=== PATIENT | male | born 1945 | race Caucasian/White ===

== ENCOUNTER 2019-02-15 15:04 | Emergency (ER) | payer MEDICARE, BC ==
[~2019-02-15] VITALS: Ht 177.8 cm; Wt 61.2 kg
[2019-02-15] MEDS: IV NORMAL SALINE 1,000ML 1,000 ML IV SCH ×2 (15:15→15:47)
--- NOTE | 2019-02-15 15:18 | EKG ---
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
[2019-02-15 15:28] LABS: BASO % 0 % (0-3); EOS # 0.1 x10^3/uL (0.0-0.7); EOS % 0 % (0-3); HEMATOCRIT 33.3 % (39.0-53.0); HEMOGLOBIN 10.2 g/dL (13.0-17.5); LYMPH # 1.2 x10^3/uL (1.0-4.8); LYMPH % 4 % (24-48); MEAN CORPUSCULAR HEMOGLOBIN 25 pg (25-35); MEAN CORPUSCULAR HGB CONC 31 g/dL (31-37); MEAN CORPUSCULAR VOLUME 81 fL (79-100); MONO # 1.7 x10^3/uL (0.0-1.1); MONO % 6 % (0-9); NEUT # 26.5 x10^3uL (1.8-7.7); NEUT % 90 % (31-73); PLATELET COUNT 417 x10^3/uL (140-400); RED BLOOD COUNT 4.09 x10^6/uL (4.30-5.70); RED CELL DISTRIBUTION WIDTH 16.1 % (11.5-14.5); WHITE BLOOD COUNT 29.6 x10^3/uL (4.0-11.0)
[2019-02-15 15:43] LABS: ALBUMIN 2.6 g/dL (3.4-5.0); ALBUMIN/GLOBULIN RATIO 0.5 (1.0-1.7); CALCIUM 9.3 mg/dL (8.5-10.1); CREATININE 0.8 mg/dL (0.7-1.3); POTASSIUM 3.9 mmol/L (3.5-5.1); TOTAL BILIRUBIN 0.6 mg/dL (0.2-1.0); TOTAL PROTEIN 8.1 g/dL (6.4-8.2)
--- NOTE | 2019-02-15 16:03 | RAD ---
CT HEAD WO CONTRAST History: Left-sided weakness Comparison: None. Technique: Noncontrast CT imaging was performed of the head. Exposure: One or more of the following individualized dose reduction techniques were utilized for this examination: 1. Automated exposure control 2. Adjustment of the mA and/or kV according to patient size 3. Use of iterative reconstruction technique. Findings: There is a 2.4 cm AP by 2.2 cm transverse fairly round focus of hyperdensity in the right frontal region with adjacent fairly severe vasogenic edema signified by low density. There is mild right to left midline shift of about 0.4 cm. There is mild lateral ventriculomegaly although probably component of mild supratentorial involutional change. There is patchy minimal density in the left mastoid air cells. Paranasal sinuses are aerated. There is atherosclerotic calcification of the carotid siphons bilaterally. Impression: 1. There is hyperdense mass or parenchymal hematoma of the right frontal lobe with adjacent prominent vasogenic edema. There is mild [id number] midline shift. Critical results were discussed by telephone with CAMILLA SAHA at 02/15/2019 4:00 PM. Electronically signed by: Lukas Chaudhari MD (02/15/2019 4:00 PM) [id number]
[2019-02-15 16:17] LABS: % BANDS 5 % (0-9); % BASOS 0 % (0-3); % EOS 2 % (0-5); % LYMPHS 7 % (24-48); % MONOS 3 % (0-10); % SEGS 83 % (35-66); HYPOCHROMIA SLIGHT; PLT ESTIMATE INCREASED (ADEQUATE); TARGET CELLS PRESENT; TOXIC GRANULATION MARKED; TOXIC VACUOLATION SLIGHT
--- NOTE | 2019-02-15 16:52 | PHYS DOC ---
Adult General Chief Complaint Chief Complaint: NEURO SYMPTOMS/DEFICITS [facility] HPI Patient is a 73-year-old male who presents with complaint of some left-sided weakness and numbness that started 2 days ago. Patient presenting with concerns that he has had a heart attack. He denies any chest pain or shortness of breath. He denies any dizziness.[] Review of Systems Review of Systems Constitutional: Denies fever or chills [] Eyes: Denies change in visual acuity, redness, or eye pain [] Respiratory: Denies cough or shortness of breath [] Cardiovascular: No additional information not addressed in HPI [] GI: Denies abdominal pain, nausea, vomiting or diarrhea [] Integument: Denies rash or skin lesions [] Neurologic: Denies headache, complains of left-sided weakness and numbness[] All other systems were reviewed and found to be within normal limits, except as documented in this note. Current Medications Current Medications Current Medications Medications (Trade) Dose Ordered Sig/Fabiano Start Time Stop Time Status Last Admin Dose Admin Sodium Chloride 1,000 ml @ 1,000 mls/hr Q1H 02/15/19 15:15 02/15/19 16:14 Allergies Allergies Allergies Coded Allergies Type Severity Reaction Last Updated Verified No Known Drug Allergies 02/15/19 No Physical Exam Physical Exam Constitutional: Well developed, well nourished, no acute distress, non-toxic appearance. [] HENT: Normocephalic, atraumatic, bilateral external ears normal, oropharynx moist, no oral exudates, nose normal. [] Eyes: PERRLA, EOMI, conjunctiva normal, no discharge. [] Neck: Normal range of motion, no tenderness, supple. [] Cardiovascular: Regular rate and rhythm[] Lungs & Thorax: Bilateral breath sounds clear to auscultation [] Abdomen: Bowel sounds normal, soft, no tenderness. [] Skin: Warm, dry, no erythema, no rash. [] Extremities: No tenderness, no cyanosis, no clubbing, ROM intact, with bilateral lower extremity 2+ edema. 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 [] Current Patient Data Vital Signs Vital Signs Date Time Temp Pulse Resp B/P (MAP) Pulse Ox O2 Delivery O2 Flow Rate FiO2 02/15/19 15:56 77 21 150/85 (106) 98 Room Air Lab Results Laboratory Tests Test 02/15/19 15:11 White Blood Count 29.6 x10^3/uL (4.0-11.0) H Red Blood Count 4.09 x10^6/uL (4.30-5.70) L Hemoglobin 10.2 g/dL (13.0-17.5) L Hematocrit 33.3 % (39.0-53.0) L Mean Corpuscular Volume 81 fL (79-100) Mean Corpuscular Hemoglobin 25 pg (25-35) Mean Corpuscular Hemoglobin Concent 31 g/dL (31-37) Red Cell Distribution Width 16.1 % (11.5-14.5) H Platelet Count 417 x10^3/uL (140-400) H Neutrophils (%) (Auto) 90 % (31-73) H Lymphocytes (%) (Auto) 4 % (24-48) L Monocytes (%) (Auto) 6 % (0-9) Eosinophils (%) (Auto) 0 % (0-3) Basophils (%) (Auto) 0 % (0-3) Neutrophils # (Auto) 26.5 x10^3uL (1.8-7.7) H Lymphocytes # (Auto) 1.2 x10^3/uL (1.0-4.8) Monocytes # (Auto) 1.7 x10^3/uL (0.0-1.1) H Eosinophils # (Auto) 0.1 x10^3/uL (0.0-0.7) Basophils # (Auto) 0.0 x10^3/uL (0.0-0.2) Platelet Estimate Pending Prothrombin Time 12.3 SEC (9.4-11.4) H Prothrombin Time INR 1.2 (0.9-1.1) H Sodium Level 136 mmol/L (136-145) Potassium Level 3.9 mmol/L (3.5-5.1) Chloride Level 97 mmol/L (98-107) L Carbon Dioxide Level 28 mmol/L (21-32) Anion Gap 11 (6-14) Blood Urea Nitrogen 15 mg/dL (8-26) Creatinine 0.8 mg/dL (0.7-1.3) Estimated GFR (Cockcroft-Gault) 95.0 BUN/Creatinine Ratio 19 (6-20) Glucose Level 99 mg/dL (70-99) Calcium Level 9.3 mg/dL (8.5-10.1) Total Bilirubin 0.6 mg/dL (0.2-1.0) Aspartate Amino Transferase (AST) 22 U/L (15-37) Alanine Aminotransferase (ALT) 24 U/L (16-63) Alkaline Phosphatase 141 U/L (46-116) H Troponin I Quantitative < 0.017 ng/mL (0-0.055) Total Protein 8.1 g/dL (6.4-8.2) Albumin 2.6 g/dL (3.4-5.0) L Albumin/Globulin Ratio 0.5 (1.0-1.7) L EKG EKG [] Radiology/Procedures Radiology/Procedures [] Impressions: PROCEDURE: CT HEAD WO CONTRAST CT HEAD WO CONTRAST History: Left-sided weakness Comparison: None. Technique: Noncontrast CT imaging was performed of the head. Exposure: One or more of the following individualized dose reduction techniques were utilized for this examination: 1. Automated exposure control 2. Adjustment of the mA and/or kV according to patient size 3. Use of iterative reconstruction technique. Findings: There is a 2.4 cm AP by 2.2 cm transverse fairly round focus of hyperdensity in the right frontal region with adjacent fairly severe vasogenic edema signified by low density. There is mild right to left midline shift of about 0.4 cm. There is mild lateral ventriculomegaly although probably component of mild supratentorial involutional change. There is patchy minimal density in the left mastoid air cells. Paranasal sinuses are aerated. There is atherosclerotic calcification of the carotid siphons bilaterally. Impression: 1. There is hyperdense mass or parenchymal hematoma of the right frontal lobe with adjacent prominent vasogenic edema. There is mild [id number] midline shift. Critical results were discussed by telephone with CAMILLA SAHA at 02/15/2019 4:00 PM. Course & Med Decision Making Course & Med Decision Making Pertinent Labs and Imaging studies reviewed. (See chart for details) Dr. Hall accepting patient in transfer to [facility].[] Dragon Disclaimer Dragon Disclaimer This electronic medical record was generated, in whole or in part, using a voice recognition dictation system. Departure Departure: Impression: Primary Impression: Intracranial mass Disposition: XFER SHT-TRM HOSP Condition: GOOD Referrals: PCP,NO (PCP) CAMILLA SAHA Jr. DO Feb 15, 2019 16:52
[2019-02-15] MEDS ORDERED: MULT-245 PO (17:56)
[2019-02-15 18:56] VITALS: BP 143/80
== END 2019-02-15 20:11 | disposition short-term general hospital (02) ==
LOC: ER 15:04
DX: G93.89 Other specified disorders of brain (principal)
CPT/HCPCS: 36415; 70450; 80053; 84484; 85007; 85025; 85610; 93005; 99285; J7030

== ENCOUNTER 2019-03-20 13:11 | Emergency (ER) | payer MEDICARE, BC ==
[~2019-03-20] VITALS: Ht 175.3 cm; Wt 55.8 kg
[~2019-03-20 13:11] MED LIST: MULT-245 PO
[2019-03-20] MEDS ORDERED: IV NORMAL SALINE 1,000ML 1,000 ML IV SCH (13:51)
[2019-03-20] MEDS ORDERED: DIPHENOXYLATE/ATROPINE TABLET. PO ONE (14:00)
[2019-03-20 14:03] LABS: BASO # 0.1 x10^3/uL (0.0-0.2); BASO % 0 % (0-3); CALCIUM 8.6 mg/dL (8.5-10.1); CREATININE 0.8 mg/dL (0.7-1.3); EOS % 0 % (0-3); HEMATOCRIT 36.1 % (39.0-53.0); HEMOGLOBIN 11.6 g/dL (13.0-17.5); LYMPH # 0.9 x10^3/uL (1.0-4.8); LYMPH % 2 % (24-48); MEAN CORPUSCULAR HEMOGLOBIN 26 pg (25-35); MEAN CORPUSCULAR HGB CONC 32 g/dL (31-37); MEAN CORPUSCULAR VOLUME 81 fL (79-100); MONO # 1.1 x10^3/uL (0.0-1.1); MONO % 3 % (0-9); NEUT # 37.6 x10^3uL (1.8-7.7); NEUT % 95 % (31-73); PLATELET COUNT 189 x10^3/uL (140-400); POTASSIUM 4.8 mmol/L (3.5-5.1); RED BLOOD COUNT 4.47 x10^6/uL (4.30-5.70); RED CELL DISTRIBUTION WIDTH 20.5 % (11.5-14.5)
[2019-03-20 14:09] LABS: ALBUMIN 2.2 g/dL (3.4-5.0); ALBUMIN/GLOBULIN RATIO 0.5 (1.0-1.7); TOTAL BILIRUBIN 0.7 mg/dL (0.2-1.0); TOTAL PROTEIN 6.6 g/dL (6.4-8.2)
[2019-03-20 14:34] LABS: % BANDS 11 % (0-9); % EOS 1 % (0-5); % LYMPHS 6 % (24-48); % MONOS 2 % (0-10); % SEGS 80 % (35-66); NUCLEATED RBC 1
[2019-03-20 14:36] LABS: TOXIC GRANULATION MOD; TOXIC VACUOLATION MOD
[2019-03-20 14:37] LABS: PLT ESTIMATE ADEQUATE (ADEQUATE)
[2019-03-20 14:38] LABS: ANISOCYTOSIS MOD; POLYCHROMASIA PRESENT
[2019-03-20 14:51] VITALS: BP 134/74
[2019-03-20 15:13] LABS: OVALOCYTES OCC
[2019-03-20] MEDS ORDERED: DIPH1TAB PO (15:27)
[2019-03-20] MEDS ORDERED: METR500T PO (15:27)
--- NOTE | 2019-03-20 15:27 | PHYS DOC ---
Past History Past Medical History: Cancer Additional Past Medical Histor: lung ca Past Surgical History: No Surgical History Alcohol Use: None Drug Use: None Adult General Chief Complaint Chief Complaint: FATIGUE HPI HPI Patient is a 73-year-old male who presents with report of diarrhea for the last few days. Patient reportedly was just recently released from hospital and had undergone radiation treatments for a brain mass at . Patient had been receiving Meals on Wheels and he states that he gotten upset stomach after eating one of his last meals and since that time he has had diarrhea. He denies any nausea or vomiting. He denies any abdominal pain. He also denies any fever. He does admit to feeling weak and feels like he is dehydrated.[] Review of Systems Review of Systems Constitutional: Denies fever or chills [] Respiratory: Denies cough or shortness of breath [] Cardiovascular: No additional information not addressed in HPI [] GI: Denies abdominal pain, nausea or vomiting. Complains of diarrhea [] Integument: Denies rash or skin lesions [] Neurologic: Denies headache, focal weakness or sensory changes [] All other systems were reviewed and found to be within normal limits, except as documented in this note. Current Medications Current Medications Current Medications Medications (Trade) Dose Ordered Sig/Fabiano Start Time Stop Time Status Last Admin Dose Admin Diphenoxylate HCl/ Atropine (Lomotil) 2 tab 1X ONCE 03/20/19 14:00 03/20/19 14:01 DC 03/20/19 14:07 2 TAB Sodium Chloride 1,000 ml @ 1,000 mls/hr Q1H 03/20/19 13:51 03/20/19 14:50 DC 03/20/19 14:07 1,000 MLS/HR Allergies Allergies Allergies Coded Allergies Type Severity Reaction Last Updated Verified No Known Drug Allergies 02/15/19 No Physical Exam Physical Exam Constitutional: Well developed, well nourished, no acute distress, non-toxic appearance. [] HENT: Normocephalic, atraumatic, bilateral external ears normal, oropharynx moist, no oral exudates, nose normal. [] Eyes: PERRLA, EOMI, conjunctiva normal, no discharge. [] Neck: Normal range of motion, no tenderness, supple, no stridor. [] Cardiovascular:Heart rate regular rhythm, no murmur [] Lungs & Thorax: Bilateral breath sounds clear to auscultation [] Abdomen: Bowel sounds normal, soft, no tenderness, no masses, no pulsatile masses. [] Skin: Warm, dry, no erythema, no rash. [] Back: No tenderness, no CVA tenderness. [] Extremities: No tenderness, no cyanosis, no clubbing, ROM intact, no edema. [] Neurologic: Alert and oriented X 3, normal motor function, normal sensory function, no focal deficits noted. [] Psychologic: Affect normal, judgement normal, mood normal. [] Current Patient Data Vital Signs Vital Signs Date Time Temp Pulse Resp B/P (MAP) Pulse Ox O2 Delivery O2 Flow Rate FiO2 03/20/19 13:11 98.2 98 16 96 Room Air Lab Results Laboratory Tests Test 03/20/19 13:33 White Blood Count 39.7 x10^3/uL (4.0-11.0) H Red Blood Count 4.47 x10^6/uL (4.30-5.70) Hemoglobin 11.6 g/dL (13.0-17.5) L Hematocrit 36.1 % (39.0-53.0) L Mean Corpuscular Volume 81 fL (79-100) Mean Corpuscular Hemoglobin 26 pg (25-35) Mean Corpuscular Hemoglobin Concent 32 g/dL (31-37) Red Cell Distribution Width 20.5 % (11.5-14.5) H Platelet Count 189 x10^3/uL (140-400) Neutrophils (%) (Auto) 95 % (31-73) H Lymphocytes (%) (Auto) 2 % (24-48) L Monocytes (%) (Auto) 3 % (0-9) Eosinophils (%) (Auto) 0 % (0-3) Basophils (%) (Auto) 0 % (0-3) Neutrophils # (Auto) 37.6 x10^3uL (1.8-7.7) H Lymphocytes # (Auto) 0.9 x10^3/uL (1.0-4.8) L Monocytes # (Auto) 1.1 x10^3/uL (0.0-1.1) Eosinophils # (Auto) 0.0 x10^3/uL (0.0-0.7) Basophils # (Auto) 0.1 x10^3/uL (0.0-0.2) Segmented Neutrophils % 80 % (35-66) H Band Neutrophils % 11 % (0-9) H Lymphocytes % 6 % (24-48) L Monocytes % 2 % (0-10) Eosinophils % 1 % (0-5) Nucleated Red Blood Cells 1 Toxic Granulation Mod Toxic Vacuolation Mod Dohle Bodies Present Platelet Estimate Adequate (ADEQUATE) Large Platelets Present Giant Platelets Occ Polychromasia Present Anisocytosis Mod Ovalocytes Occ Sodium Level 131 mmol/L (136-145) L Potassium Level 4.8 mmol/L (3.5-5.1) Chloride Level 94 mmol/L (98-107) L Carbon Dioxide Level 32 mmol/L (21-32) Anion Gap 5 (6-14) L Blood Urea Nitrogen 31 mg/dL (8-26) H Creatinine 0.8 mg/dL (0.7-1.3) Estimated GFR (Cockcroft-Gault) 95.0 BUN/Creatinine Ratio 39 (6-20) H Glucose Level 167 mg/dL (70-99) H Calcium Level 8.6 mg/dL (8.5-10.1) Total Bilirubin 0.7 mg/dL (0.2-1.0) Aspartate Amino Transferase (AST) 28 U/L (15-37) Alanine Aminotransferase (ALT) 46 U/L (16-63) Alkaline Phosphatase 216 U/L (46-116) H Total Protein 6.6 g/dL (6.4-8.2) Albumin 2.2 g/dL (3.4-5.0) L Albumin/Globulin Ratio 0.5 (1.0-1.7) L EKG EKG [] Radiology/Procedures Radiology/Procedures [] Course & Med Decision Making Course & Med Decision Making Pertinent Labs and Imaging studies reviewed. (See chart for details) [] Dragon Disclaimer Dragon Disclaimer This electronic medical record was generated, in whole or in part, using a voice recognition dictation system. Departure Departure: Impression: Primary Impression: Diarrhea Additional Impression: Dehydration Disposition: 01 HOME, SELF-CARE Condition: STABLE Referrals: PCP,NO (PCP) Patient Instructions: Dehydration, Adult, Diarrhea Scripts Diphenoxylate Hcl/Atropine (LOMOTIL TABLET) 1 Each Tablet 1 TAB PO TID PRN for DIARRHEA, #15 TAB Prov: CAMILLA SAHA Jr. DO 03/20/19 Metronidazole (FLAGYL) 500 Mg Tablet 1 TAB PO TID for diarrhea, #30 TAB Prov: CAMILLA SAHA Jr. DO 03/20/19 Problem Qualifiers Primary Impression: Diarrhea Diarrhea type: unspecified type Qualified Codes: R19.7 - Diarrhea, unspecified CAMILLA SAHA Jr. DO Mar 20, 2019 15:27
[2019-03-20] MEDS ORDERED: metroNIDAZOLE 500 MG TABLET PO ONE (15:30)
[2019-03-22 10:16] LABS: WHITE BLOOD COUNT 39.7 x10^3/uL (4.0-11.0)
== END 2019-03-20 15:30 | disposition home or self-care (01) ==
LOC: ER 13:11
DX: E86.0 Dehydration (principal); R19.7 Diarrhea, unspecified
CPT/HCPCS: 36415; 80053; 85007; 85025; 96360; 99284-25; J7030

== ENCOUNTER 2019-03-24 11:05 | Inpatient (IN) | payer MEDICARE, BC ==
[~2019-03-24] VITALS: Ht 175.3 cm; Wt 57.2 kg
[~2019-03-24 11:05] MED LIST changes: +DIPH1TAB PO; +METR500T PO
--- NOTE | 2019-03-24 11:39 | RAD ---
Examination: PORTABLE CHEST 1V History: Syncope Comparison/Correlation: None Findings: Portable upright frontal view of the chest was obtained. Heart size normal. No pulmonary vasculature congestion. Right lung field is clear. Left mid to lower thoracic lung field masslike consolidation is present and ill-defined. This involves the hilum on the left as well. No pneumothorax. No significant pleural effusion. Impression: Left mid to lower thoracic masslike consolidation which involves the left hilum. Neoplastic process is of concern. Further evaluation with CT of the chest with contrast is recommended for more definitive assessment. Electronically signed by: Garrett Mendez MD (03/24/2019 11:36 AM) [facility]
[2019-03-24 11:44] LABS: BASO # 0.1 x10^3/uL (0.0-0.2); BASO % 0 % (0-3); EOS # 0.1 x10^3/uL (0.0-0.7); EOS % 0 % (0-3); HEMATOCRIT 37.6 % (39.0-53.0); LYMPH # 0.6 x10^3/uL (1.0-4.8); LYMPH % 1 % (24-48); MEAN CORPUSCULAR HEMOGLOBIN 26 pg (25-35); MEAN CORPUSCULAR HGB CONC 32 g/dL (31-37); MEAN CORPUSCULAR VOLUME 81 fL (79-100); MONO # 0.9 x10^3/uL (0.0-1.1); MONO % 2 % (0-9); NEUT # 37.1 x10^3uL (1.8-7.7); NEUT % 96 % (31-73); PLATELET COUNT 208 x10^3/uL (140-400); RED BLOOD COUNT 4.64 x10^6/uL (4.30-5.70); RED CELL DISTRIBUTION WIDTH 20.6 % (11.5-14.5); WHITE BLOOD COUNT 38.8 x10^3/uL (4.0-11.0)
[2019-03-24 11:45] LABS: CALCIUM 9.3 mg/dL (8.5-10.1); CREATININE 0.8 mg/dL (0.7-1.3); POTASSIUM 4.8 mmol/L (3.5-5.1)
[2019-03-24 12:02] LABS: ALBUMIN/GLOBULIN RATIO 0.4 (1.0-1.7); TOTAL BILIRUBIN 1.5 mg/dL (0.2-1.0); TOTAL PROTEIN 6.8 g/dL (6.4-8.2)
[2019-03-24 12:37] LABS: % BANDS 12 % (0-9); % LYMPHS 4 % (24-48); % METAS 1 % (0-0); % MONOS 4 % (0-10); % SEGS 79 % (35-66)
[2019-03-24 12:41] LABS: PLT ESTIMATE ADEQUATE (ADEQUATE)
[2019-03-24 12:42] LABS: TOXIC GRANULATION PRESENT; TOXIC VACUOLATION PRESENT
[2019-03-24] MEDS ORDERED: IV NORMAL SALINE 1,000ML 1,000 ML IV ONE ×2 (12:45→16:00)
--- NOTE | 2019-03-24 13:10 | RAD ---
EXAM: Pelvis, single view. HISTORY: Fall. COMPARISON: None. FINDINGS: A frontal view of the pelvis is obtained. No displaced fracture is seen. There is bone demineralization. There is minimal bilateral hip osteoarthritis. IMPRESSION: No acute osseous finding. Electronically signed by: Arpita Min MD (03/24/2019 1:07 PM) [facility]
[2019-03-24 13:24] LABS: ANISOCYTOSIS SLIGHT; POLYCHROMASIA PRESENT
[2019-03-24] MEDS ORDERED: DEXTROSE 25% 10 ML DISP.SYRIN. IV ONE (13:45)
[2019-03-24] MEDS ORDERED: DEXTROSE 50% 25 GM / 50ML DISP.SYRIN. IV ONE (14:00)
[2019-03-24] MEDS ORDERED: IV NORMAL SALINE 1,000ML 1,000 ML IV SCH (14:10)
--- NOTE | 2019-03-24 14:10 | PHYS DOC ---
Past History Past Medical History: Cancer Additional Past Medical Histor: lung ca Past Surgical History: No Surgical History Alcohol Use: None Drug Use: None Adult General Chief Complaint Chief Complaint: WEAKNESS/GENERALIZED HPI HPI Patient is a 73-year-old male with history of lung cancer that metastasized to his liver and his brain, UNDER care at [facility] oncology department was brought to this emergency Department this morning by EMS due to general weakness. Patient said he tried get out of bed this morning, became really weak, fell on his buttock. Patient denies any headache, no neck pain, no chest pain or any trouble breathing. Patient had been feeling weak and dehydrated for the last week. Patient denies any cough or fever. He had no appetite, had not been eating or drinking much lately. Patient said he is aching all over, wanted some pain medication. Patient said it is his cancer pain. aLL OTHER ros IS NEGATIVE UNLESS OTHERWISE NOTED IN hpi Review of Systems Review of Systems See above Current Medications Current Medications Current Medications Medications (Trade) Dose Ordered Sig/Fabiano Start Time Stop Time Status Last Admin Dose Admin Dextrose (Dextrose 50%-Water Syringe) 25 gm 1X ONCE 03/24/19 14:00 03/24/19 14:01 DC Dextrose (Dextrose 25% Syringe) 10 ml 1X ONCE 03/24/19 13:45 03/24/19 13:48 DC Fentanyl Citrate (Fentanyl 2ml Vial) 50 mcg 1X ONCE 03/24/19 14:00 03/24/19 14:01 DC Sodium Chloride 1,000 ml @ 1,000 mls/hr 1X ONCE 03/24/19 12:45 03/24/19 13:44 DC 03/24/19 12:45 1,000 MLS/HR Allergies Allergies Allergies Coded Allergies Type Severity Reaction Last Updated Verified No Known Drug Allergies 02/15/19 No Physical Exam Physical Exam See above Constitutional: Well developed, well nourished, appear pale and frail, non-toxic appearance. [] HENT: Normocephalic, atraumatic, bilateral external ears normal, oropharynx moist, no oral exudates, nose normal. [] Eyes: PERRLA, EOMI, conjunctiva normal, no discharge. [] Neck: Normal range of motion, no tenderness, supple, no stridor. [] Cardiovascular:Sinus tachycardia, regular rhythm, no murmur [] Lungs & Thorax: Bilateral breath sounds clear to auscultation [] Abdomen: Bowel sounds normal, soft, no tenderness, no masses, no pulsatile masses. [] Skin: Warm, dry, no erythema, no rash. [] Back: No tenderness, no CVA tenderness. [] Extremities: No tenderness, no cyanosis, no clubbing, ROM intact, no edema. NO EVIDENCE OF INJURY. Neurologic: Alert and oriented X 3, normal motor function, normal sensory function, no focal deficits noted. [] Psychologic: Affect normal, judgement normal, mood normal. [] Current Patient Data Vital Signs Vital Signs Date Time Temp Pulse Resp B/P (MAP) Pulse Ox O2 Delivery O2 Flow Rate FiO2 03/24/19 11:25 18 92 Nasal Cannula 2.0 Lab Results Laboratory Tests Test 03/24/19 11:20 03/24/19 12:10 03/24/19 12:45 White Blood Count 38.8 x10^3/uL (4.0-11.0) H Red Blood Count 4.64 x10^6/uL (4.30-5.70) Hemoglobin 12.0 g/dL (13.0-17.5) L Hematocrit 37.6 % (39.0-53.0) L Mean Corpuscular Volume 81 fL (79-100) Mean Corpuscular Hemoglobin 26 pg (25-35) Mean Corpuscular Hemoglobin Concent 32 g/dL (31-37) Red Cell Distribution Width 20.6 % (11.5-14.5) H Platelet Count 208 x10^3/uL (140-400) Neutrophils (%) (Auto) 96 % (31-73) H Lymphocytes (%) (Auto) 1 % (24-48) L Monocytes (%) (Auto) 2 % (0-9) Eosinophils (%) (Auto) 0 % (0-3) Basophils (%) (Auto) 0 % (0-3) Neutrophils # (Auto) 37.1 x10^3uL (1.8-7.7) H Lymphocytes # (Auto) 0.6 x10^3/uL (1.0-4.8) L Monocytes # (Auto) 0.9 x10^3/uL (0.0-1.1) Eosinophils # (Auto) 0.1 x10^3/uL (0.0-0.7) Basophils # (Auto) 0.1 x10^3/uL (0.0-0.2) Segmented Neutrophils % 79 % (35-66) H Band Neutrophils % 12 % (0-9) H Lymphocytes % 4 % (24-48) L Monocytes % 4 % (0-10) Metamyelocytes % 1 % (0-0) H Toxic Granulation Present Toxic Vacuolation Present Dohle Bodies Present Platelet Estimate Adequate (ADEQUATE) Large Platelets Occ Polychromasia Present Anisocytosis Slight Sodium Level 130 mmol/L (136-145) L Potassium Level 4.8 mmol/L (3.5-5.1) Chloride Level 92 mmol/L (98-107) L Carbon Dioxide Level 31 mmol/L (21-32) Anion Gap 7 (6-14) Blood Urea Nitrogen 30 mg/dL (8-26) H Creatinine 0.8 mg/dL (0.7-1.3) Estimated GFR (Cockcroft-Gault) 95.0 BUN/Creatinine Ratio 38 (6-20) H Glucose Level 68 mg/dL (70-99) L Calcium Level 9.3 mg/dL (8.5-10.1) Magnesium Level 2.0 mg/dL (1.8-2.4) Total Bilirubin 1.5 mg/dL (0.2-1.0) H Aspartate Amino Transferase (AST) 40 U/L (15-37) H Alanine Aminotransferase (ALT) 33 U/L (16-63) Alkaline Phosphatase 234 U/L (46-116) H Creatine Kinase 165 U/L (39-308) Creatine Kinase MB (Mass) 1.2 ng/mL (0.0-3.6) Creatine Kinase MB Relative Index 0.7 % (0-4) Troponin I Quantitative < 0.017 ng/mL (0-0.055) KP-[id number]-[id number]-Type Natriuretic Peptide 1487 pg/mL (0-124) H Total Protein 6.8 g/dL (6.4-8.2) Albumin 2.0 g/dL (3.4-5.0) L Albumin/Globulin Ratio 0.4 (1.0-1.7) L Prothrombin Time 14.1 SEC (9.4-11.4) H Prothrombin Time INR 1.4 (0.9-1.1) H Activated Partial Thromboplast Time 33 SEC (23-33) Lactic Acid Level 1.7 mmol/L (0.4-2.0) EKG EKG EKG was read by this physician at 1220, heart rate of 131 bpm, sinus tachycardia, no STEMI. [] Radiology/Procedures Radiology/Procedures [][address] [address] IMAGING REPORT Signed PATIENT: NANCY SOLIS ACCOUNT: [id number] : 1945 LOCATION: ER AGE: 73 SEX: M EXAM STATUS: PRE ER ORD. PHYSICIAN: SYLVIA CALDERÓN DO REASON: SYNCOPE PROCEDURE: PORTABLE CHEST 1V Examination: PORTABLE CHEST 1V History: Syncope Comparison/Correlation: None Findings: Portable upright frontal view of the chest was obtained. Heart size normal. No pulmonary vasculature congestion. Right lung field is clear. Left mid to lower thoracic lung field masslike consolidation is present and ill-defined. This involves the hilum on the left as well. No pneumothorax. No significant pleural effusion. Impression: Left mid to lower thoracic masslike consolidation which involves the left hilum. Neoplastic process is of concern. Further evaluation with CT of the chest with contrast is recommended for more definitive assessment. Electronically signed by: Garrtet Zuniga MD (03/24/2019 11:36 AM) [facility] DICTATED AND SIGNED BY: GARRETT ZUNIGA MD DATE: 03/24/19 1136 CC: PCP,NO; SYLVIA CALDERÓN DO ~ [address] [address] IMAGING REPORT Signed PATIENT: NANCY SOLIS ACCOUNT: [id number] : 1945 LOCATION: ER AGE: 73 SEX: M EXAM STATUS: REG ER ORD. PHYSICIAN: SYLVIA CALDERÓN DO REASON: fell out of bed, pelvic pain PROCEDURE: PELVIS EXAM: Pelvis, single view. HISTORY: Fall. COMPARISON: None. FINDINGS: A frontal view of the pelvis is obtained. No displaced fracture is seen. There is bone demineralization. There is minimal bilateral hip osteoarthritis. IMPRESSION: No acute osseous finding. Electronically signed by: Arpita Warner MD (03/24/2019 1:07 PM) [place] [id number] DICTATED AND SIGNED BY: ARPITA WARNER MD DATE: 03/24/19 5488 CC: PCP,ASMITA; SYLVIA CALDERÓN DO ~ Course & Med Decision Making Course & Med Decision Making Pertinent Labs and Imaging studies reviewed. (See chart for details) [] Dragon Disclaimer Dragon Disclaimer This electronic medical record was generated, in whole or in part, using a voice recognition dictation system. Departure Departure: Impression: Primary Impression: Lung cancer metastatic to brain Additional Impressions: Weakness Hypoglycemia Disposition: 09 ADMITTED INPATIENT Admitting Physician: Sylvia Salmeron Condition: STABLE Referrals: PCPASMITA (PCP) Problem Qualifiers SYLVIA CALDERÓN DO Mar 24, 2019 14:10
[2019-03-24] MEDS ORDERED: ONDANSETRON PF 4 MG/2 ML VIAL. IV PRN (14:15)
--- NOTE | 2019-03-24 17:00 | NUR ---
The patient, NANCY SOLIS, 73 y/o, M admitted by SYLVIA ELLSWORTH MD, was given written information regarding hospital policies, unit procedures and contact persons. Valuables were checked and left in room, patient arrived via EMS from ER. Patient states he is ready for hospice and would like a consult placed. Patient states he is very tired and ready for palliative care. Will consult case management. Patient states he is going to for radiation for his lung cancer and brain tumor that was found on February 11 here in our ER. Patients next radiation treatment is on March 31. Family aware of patients requests and plan of care.
[2019-03-24 17:07] VITALS: BP 109/63
--- NOTE | 2019-03-24 17:26 | EKG ---
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
[2019-03-24] MEDS ORDERED: ACETAMINOPHEN 500 MG TABLET PO PRN ×2 (17:45→18:30)
[2019-03-24] MEDS: MORPHINE SULFATE 2 MG/ML DISP.SYRIN. IV PRN (17:48)
--- NOTE | 2019-03-24 17:54 | EKG ---
[address] [address] Test Date: 2019-03-24 Test Time: 12:20:31 Pat Name: NANCY SOLIS Department: Room: 123 A Gender: M Diagrammer: : 1945 Requested By: SYLVIA ELLSWORTH Order Number: [id number] Reading MD: Measurements Intervals [place] Rate: 131 P: -35 W[place]: 122 QRS: -22 QRSD: 80 T: 24 QT: 270 QTc: 403 Interpretive Statements SINUS TACHYCARDIA LEFTWARD AXIS NO SPECIFIC ECG ABNORMALITIES RI6.01 No previous ECG available for comparison
[2019-03-24] MEDS ORDERED: HYDROmorphone PF 2 MG/ML VIAL IV PRN (18:15)
[2019-03-24] MEDS ORDERED: PIP/TAZO PER PHARMACY MC PRN (18:30)
[2019-03-24] MEDS ORDERED: DIPHENOXYLATE/ATROPINE TABLET. PO PRN (18:30)
--- NOTE | 2019-03-24 18:41 | NUR ---
Spoke with Dr Salmeron in regards to patients status, will consult case management to discuss hospice options. IV ABT and fluids ordered, will discuss with patient if would like to continue ABTs. Patient recieved prn morphine but states it is not relieving any pain, orders to start PRN Dilaudid and fentanyl patch.
[2019-03-24] MEDS: IV NORMAL SALINE 1,000ML 1,000 ML IV SCH (18:45)
[2019-03-24] MEDS ORDERED: ZOLPIDEM 5 MG TABLET. PO PRN ×2 (18:45)
[2019-03-24 19:37] VITALS: BP 105/64
[2019-03-24] MEDS ORDERED: fentaNYL 25MCG/HR 1 PATCH PATCH TD SCH (20:00)
[2019-03-24] MEDS ORDERED: VANCOMYCIN 1.25 GM in IV NORMAL SALINE 250ML 250 ML IV ONE (20:00)
[2019-03-24] MEDS ORDERED: DEXAMETHASONE 4 MG TABLET PO SCH (21:00)
[2019-03-24] MEDS: VANCOMYCIN PER PHARMACY MC PRN (21:05)
--- NOTE | 2019-03-24 21:06 | NUR ---
Pharmacy Vancomycin Dosing Note S:Consulted to monitor and dose vancomycin started 03/24/19. O:NANCY SOLIS is a 73 year old M with Empiric, . Height: 5 feet, 9 inches Weight: 54.742574 kg [place] Body Weight: 70.70 Adjusted Body Weight: 64.38 Dosing Weight: Actual Other Antibiotics: ZOSYN LABS: Last BUN: 30 Last Creatinine: 0.8 Creatinine Clearance: 51.84 Last WBC: 38.8 Vancomycin Dosing: Loading Dose: 1250 mg x1 Dosing Weight: Actual Target Trough: 10-20 A: Based on: Actual weight and renal function P: 1. Begin Vancomycin 1000 mg IV q24h 2. Follow up Trough level on 03/26/19 at 1930 3. Pharmacy will continue to monitor, follow and adjust therapy as needed. ANGIE ANDUJAR, 03/24/19 [id number]
[2019-03-24] MEDS: metroNIDAZOLE 500 MG TABLET PO SCH (21:28)
[2019-03-24] MEDS: levETIRAcetam 500 MG TABLET PO SCH (21:28)
[2019-03-24] MEDS: LACTOBACILLUS RHAMNOSUS GG 1 CAPSULE. PO SCH (21:28)
[2019-03-24] MEDS: PIPERACILLIN/TAZOBACTAM 3.375 GM in IV NORMAL SALINE 50ML 50 ML IV SCH (22:00)
[2019-03-24 22:25] VITALS: BP 111/66
--- NOTE | 2019-03-24 22:50 | HP ---
ADMIT DATE: 03/24/2019 HISTORY OF PRESENT ILLNESS: A 73-year-old gentleman, who has a history of lung cancer with metastatic disease to his liver and brain. He goes to at the [facility]. The patient was brought in through the Emergency Room here because of generalized weakness. The patient apparently had fallen as he was trying to get out of bed and fell on his buttocks. The patient denies any headaches or neck pain. The patient has been feeling weak and dehydrated. The patient has no appetite and is achy all over. The patient had had probably mets related pain from his lung cancer. PAST MEDICAL HISTORY: Basically that of lung cancer with metastatic disease. HOME MEDICATIONS: Metronidazole 500 mg t.i.d., Lomotil, and multivitamin. ALLERGIES: The patient has no known drug allergies. SOCIAL HISTORY: The patient had a [id number] history of smoking. REVIEW OF SYSTEMS: Generally short of breath and denies chest pain, does have generalized pain throughout as he relates to his bone pain from his cancer, some mild nausea and diarrhea. Denies any melena, hematemesis Neurologic, more or less baseline, difficulty moving, just generalized weakness and that of probable dehydration. PHYSICAL EXAMINATION: GENERAL: This is a pleasant white male. Appears pale. Frail appearing. HEENT: Atraumatic, normocephalic. The patient's eyes were PERRLA, EOMI. No jaundice noted. NECK: Unremarkable. LUNGS: Showed decreased breath sounds throughout, but clear. CARDIOVASCULAR: Regular rate and rhythm, but sinus tachycardia. ABDOMEN: Soft, nontender, no rebound or guarding. Positive bowel sounds, no hepatosplenomegaly. Some tenderness in the right upper quadrant area. The patient's skin was warm and dry. The patient's back showed no tenderness. No CVA otherwise. EXTREMITIES: No clubbing, cyanosis, nor edema. NEUROLOGIC: The patient is complaining of pain in his head. Other than that, alert and oriented x 3, moving all extremities fairly well, although generalized weakness and general lack of coordination. IMAGING: The patient had a chest x-ray, which demonstrated a mass-like consolidation involving the left hilum, neoplastic process was noted as this is well documented. The patient also had an x-ray of his pelvis since he fell on it when he was at home and that was negative there. LABORATORY DATA: The white count was markedly elevated to 38,000, hemoglobin 12 and 37. He does have a left shift of 12 bands, and multiple atypical metamyelocytes as well as other abnormal white blood cells, no doubt from his cancer and possible chemotherapy. The patient's otherwise sodium 130, BUN of 30 and 0.8, glucose 68. Lactic acid 1.7. He did have an elevated AST and alkaline phosphatase was elevated to 37. Troponin negative. Elevation of the BNP and severe protein malnutrition. The patient will be admitted for rehydration. The patient was talked about going on hospice and I will consider that as indicated. Otherwise, the patient is running a temperature. OBJECTIVE: VITAL SIGNS: Presently, blood pressure 105/64, respiratory rate 20, pulse 113, temperature 101.4. He is on 3.5 liters at 93%. IMPRESSION: Sepsis, lung cancer with mets to the liver and brain, probable pneumonia, marked leukocytosis, maybe secondary to the tumor or to an infection, possibly surrounding the tumor itself. The patient otherwise was placed on IV antibiotic therapy for now. IV fluids. Continue to monitor and try to encourage his appetite as he has severe protein malnutrition and make further evaluation per his request as far as hospice or other avenues of treatment. We started him on a fentanyl patch for severe pain and also dexamethasone, which may help with any swelling of the brain mets tumor itself. He has been placed on piperacillin and vancomycin and he will continue to be monitored carefully. The patient is a DNR. SYLVIA ELLSWORTH MD DR: DMITRY/inocencia JOB#: [id number] / [id number]
[2019-03-25] VITALS (26 sets, daily range): BP systolic 77–128; BP diastolic 42–80
[2019-03-25] MEDS: IV NORMAL SALINE 1,000ML 1,000 ML IV SCH ×4 (01:25→14:45)
[2019-03-25] MEDS: PIPERACILLIN/TAZOBACTAM 3.375 GM in IV NORMAL SALINE 50ML 50 ML IV SCH ×3 (04:07→15:47)
[2019-03-25] MEDS ORDERED: METOPROLOL TARTRATE 5 MG/5 ML VIAL. IV ONE ×2 (05:00→09:30)
[2019-03-25] MEDS ORDERED: METOPROLOL TART IMMED RELEASE 25 MG TABLET PO ONE (05:00)
--- NOTE | 2019-03-25 05:30 | NUR ---
Heart rate noted in the 150s. Dr. Salmeron notified, orders obtained for either 12.5mg Metoprolol PO or 5mg Metoprolol IVP. Pt noted to be up to the 220s at this time. IVP metoprolol given. EKG obtained, pt in A. Fib with RVR. Rates maintaining at 160-170s. Dr. Salmeron notified, transfer pt to ICU, and give 10mg Cardizem IVP. Second 20g IV placed in left forearm, normal saline bolus going for B/P 80s/40s. Fentanyl patch removed.
[2019-03-25] MEDS ORDERED: dilTIAZem VIAL 125 MG in IV NORMAL SALINE 100ML 100 ML IV PRN (05:45)
[2019-03-25] MEDS ORDERED: IV NORMAL SALINE 1,000ML 1,000 ML IV ONE (05:45)
[2019-03-25] MEDS ORDERED: dilTIAZem 25 MG/5 ML VIAL IVP ONE (06:00)
[2019-03-25] MEDS ORDERED: NOREPINEPHRINE BITARTRATE 8 MG in IV DEXTROSE 5% 250 ML IV PRN (06:00)
--- NOTE | 2019-03-25 06:00 | NUR ---
Pt transfer to ICU. IV metoprolol given with no drop in HR but BP now low. EKG showed Pt in Afib with RVR. Rates maintaining in the 140-160s. Dr. Salmeron notified, Pt given 10mg Cardizem IVP and started on gtt. Cardizem increased to Max dose per protocol 15mg/hr. Second IV obtained, #20 placed in left FA. BP still low after IVF bolus, 80s/40s. Levophed gtt started. Fentanyl patch removed. 16F Pimentel placed to dependent drainage, 200 cc of straw colored urine noted. Dr Friedman at bedside. IV Morphine given & IV Digoxin given, HRs in 130s now.
[2019-03-25] MEDS ORDERED: NOREPINEPHRINE BITARTRATE 4 MG/4 ML VIAL. IV ONE (06:09)
[2019-03-25] MEDS ORDERED: DIGOXIN IV 500 MCG/2 ML AMPUL. IV STA ×2 (07:18→07:51)
[2019-03-25] MEDS: MORPHINE SULFATE 2 MG/ML DISP.SYRIN. IV PRN (07:25)
[2019-03-25 07:54] LABS: BASO # 0.1 x10^3/uL (0.0-0.2); BASO % 0 % (0-3); EOS # 0.1 x10^3/uL (0.0-0.7); EOS % 0 % (0-3); HEMATOCRIT 29.2 % (39.0-53.0); LYMPH # 0.4 x10^3/uL (1.0-4.8); LYMPH % 1 % (24-48); MEAN CORPUSCULAR HEMOGLOBIN 26 pg (25-35); MEAN CORPUSCULAR HGB CONC 31 g/dL (31-37); MEAN CORPUSCULAR VOLUME 83 fL (79-100); MONO # 0.7 x10^3/uL (0.0-1.1); MONO % 2 % (0-9); NEUT # 33.2 x10^3uL (1.8-7.7); NEUT % 96 % (31-73); PLATELET COUNT 191 x10^3/uL (140-400); RED BLOOD COUNT 3.53 x10^6/uL (4.30-5.70); RED CELL DISTRIBUTION WIDTH 20.3 % (11.5-14.5); WHITE BLOOD COUNT 34.7 x10^3/uL (4.0-11.0)
[2019-03-25] MEDS ORDERED: DEXAMETHASONE 4 MG TABLET PO SCH (08:00)
[2019-03-25 08:03] LABS: CALCIUM 7.4 mg/dL (8.5-10.1); CREATININE 0.6 mg/dL (0.7-1.3); GFR 132.4; POTASSIUM 3.6 mmol/L (3.5-5.1)
[2019-03-25] MEDS: levETIRAcetam 500 MG TABLET PO SCH (08:20)
[2019-03-25] MEDS: LACTOBACILLUS RHAMNOSUS GG 1 CAPSULE. PO SCH (08:20)
[2019-03-25] MEDS: metroNIDAZOLE 500 MG TABLET PO SCH (08:31)
--- NOTE | 2019-03-25 08:39 | NUR ---
Susu INSPECTOR RECEIVING from cardiology here at this time. Beatris, daughter here at this time. Patient took oral medication at this time, attempted to take 15L Non rebreather off and sats decreased to 81-83% with patient on 4L NC. Patient placed back on non rebreather at this time and sats increased back to 92%. Currently maxed out on cardizem gtt, given 2nd dose of digoxin at 0830, zosyn for antibiotics and levophed held due to blood pressure being maintained. Patient states he is feeling comfortable at this time after receiving morphine at 0727, denies needing anything at this time. Records requested from [facility].
[2019-03-25] MEDS ORDERED: MAGNESIUM SULFATE 2GM 50 ML IV ONE (08:45)
--- NOTE | 2019-03-25 08:48 | PDOC2 ---
KATIA MURDOCK PENCILS WASHER 03/25/19 0848: CARDIAC CONSULT DATE OF CONSULT Date Of Consult DATE: 03/25/19 TIME: 08:35 REASON FOR CONSULT Reason for Consult AFIB with RVR REFERRING PHYSICIAN Referring Physician Dr. Salmeron SOURCE Source: Chart review, Patient HPI History of Present Illness This is a 73 yo female who presented secondary to weakness. Patient had fallen out of bed and daughter was unable to get him up. Called EMS to assist. Was noted in AFIB with RVR upon arrival to the ED, which prompted this consult. Patient has a history of metastatic lung CA with brain, liver, and renal involvement that was recently diagnosed. Follows with [facility]. Has had radiation to brain. Does not want chemo Denies any chest pain, palpitations, dizziness, diaphoresis, or nausea/vomiting PAST MEDICAL HISTORY Heme/Onc: Cancer (Metastatic lung CA with brain, liver, and renal involvement. Fairly new diagnosis. Follows with [facility]. Has had radiation to brain. Does not want chemo) PAST SURGICAL HISTORY Past Surgical History: No pertinent history FAMILY HISTORY Family History: Hypertension SOCIAL HISTORY Smoke: <1 pack per day ALCOHOL: none Drugs: None Lives: Alone CURRENT MEDICATIONS Current Medications Current Medications Sodium Chloride 1,000 ml @ 1,000 mls/hr 1X ONCE IV Last administered on 03/24/19at 12:45; Start 03/24/19 at 12:45; Stop 03/24/19 at 13:44; Status DC Dextrose (Dextrose 25% Syringe) 10 ml 1X ONCE IV ; Start 03/24/19 at 13:45; Stop 03/24/19 at 13:48; Status DC Dextrose (Dextrose 50%-Water Syringe) 25 gm 1X ONCE IV Last administered on 03/24/19at 14:04; Start 03/24/19 at 14:00; Stop 03/24/19 at 14:01; Status DC Fentanyl Citrate (Fentanyl 2ml Vial) 50 mcg 1X ONCE IVP Last administered on 03/24/19at 14:04; Start 03/24/19 at 14:00; Stop 03/24/19 at 14:01; Status DC Ondansetron HCl (Zofran) 4 mg PRN Q4HRS PRN IV NAUSEA/VOMITING; Start 03/24/19 at 14:15; Stop 03/25/19 at 14:14 Morphine Sulfate (Morphine 2mg Syringe) 2 mg PRN Q2HR PRN IV PAIN Last administered on 03/25/19at 07:25; Start 03/24/19 at 14:15; Stop 03/25/19 at 14:14 Sodium Chloride 1,000 ml @ 75 mls/hr [id number] IV Last administered on 03/24/19at 17:35; Start 03/24/19 at 14:10; Stop 03/24/19 at 18:51; Status DC Dexamethasone (Decadron) 8 mg BID PO ; Start 03/24/19 at 21:00; Status Cancel Levetiracetam (Keppra) 500 mg BID PO Last administered on 03/25/19at 08:20; Start 03/24/19 at 21:00 Sodium Chloride 1,000 ml @ 1,000 mls/hr 1X ONCE IV Last administered on 03/24/19at 17:36; Start 03/24/19 at 16:00; Stop 03/24/19 at 16:59; Status DC Acetaminophen (Tylenol) 650 mg PRN Q6HRS PRN PO PAIN / TEMP Last administered on 03/24/19at 17:49; Start 03/24/19 at 17:45; Stop 03/24/19 at 18:20; Status DC Fentanyl (Duragesic 25mcg/ Hr) 1 patch Q3DAYS TD Last administered on 03/24/19at 20:00; Start 03/24/19 at 20:00 Hydromorphone HCl (Dilaudid) 2 mg PRN Q2HR PRN IV PAIN; Start 03/24/19 at 18:15 Acetaminophen (Tylenol) 500 mg PRN Q6HRS PRN PO PAIN / TEMP Last administered on 03/25/19at 08:19; Start 03/24/19 at 18:30 Diphenoxylate HCl/ Atropine (Lomotil) 1 tab PRN TID PRN PO DIARRHEA; Start 03/24/19 at 18:30 Metronidazole (Flagyl) 500 mg TID PO Last administered on 03/24/19at 21:28; Start 03/24/19 at 21:00; Stop 03/25/19 at 08:31; Status DC Piperacillin Sod/ Tazobactam Sod 3.375 gm/Sodium Chloride 50 ml @ 100 mls/hr Q6H IV Last administered on 03/25/19at 08:24; Start 03/24/19 at 22:00 Vancomycin HCl 1.25 gm/Sodium Chloride 250 ml @ 166.667 mls/hr 1X ONCE IV Last administered on 03/24/19at 20:00; Start 03/24/19 at 20:00; Stop 03/24/19 at 21:29; Status DC Vancomycin HCl (Vanco Per Pharmacy) 1 each PRN DAILY PRN MC SEE COMMENTS Last administered on 03/24/19at 21:05; Start 03/24/19 at 18:30 Piperacillin Sod/ Tazobactam Sod (Zosyn Per Pharmacy) 1 each PRN DAILY PRN MC SEE COMMENTS Last administered on 03/24/19at 21:00; Start 03/24/19 at 18:30 Zolpidem Tartrate (Ambien) 5 mg PRN QHS PRN PO INSOMNIA, MAY REPEAT IN 1HR; Start 03/24/19 at 18:45 Sodium Chloride 1,000 ml @ 150 mls/hr Q6H40M IV Last administered on 03/25/19at 02:55; Start 03/24/19 at 18:45 Zolpidem Tartrate (Ambien) 5 mg PRN QHS PRN PO INSOMNIA, MAY REPEAT IN 1HR; Start 03/24/19 at 18:45; Status UNV Dexamethasone (Decadron) 4 mg [id number] PO Last administered on 03/25/19at 08:31; Start 03/25/19 at 08:00 Vancomycin HCl 750 mg/Sodium Chloride 250 ml @ 250 mls/hr Q24H IV ; Start 03/25/19 at 20:00 Vancomycin HCl (Vancomycin Trough Level) 1 each 1X ONCE MC ; Start 03/26/19 at 19:30; Stop 03/26/19 at 19:31 Lactobacillus Rhamnosus (Culturelle) 1 cap BID PO Last administered on 03/24/19at 21:28; Start 03/24/19 at 21:00 Metoprolol Tartrate (Lopressor) 12.5 mg 1X ONCE PO ; Start 03/25/19 at 05:00; Stop 03/25/19 at 05:01; Status DC Metoprolol Tartrate (Lopressor Vial) 5 mg 1X ONCE IV Last administered on 03/25/19at 05:11; Start 03/25/19 at 05:00; Stop 03/25/19 at 05:05; Status DC Diltiazem HCl (Cardizem Iv Push) 10 mg 1X ONCE IVP Last administered on 03/25/19at 05:33; Start 03/25/19 at 06:00; Stop 03/25/19 at 06:01; Status DC Diltiazem HCl 125 mg/Sodium Chloride 125 ml @ 5 mls/hr CONT PRN IV SEE I/O RECORD Last administered on 03/25/19at 06:00; Start 03/25/19 at 05:45 Sodium Chloride 1,000 ml @ 1,000 mls/hr 1X ONCE IV Last administered on 03/25/19at 05:56; Start 03/25/19 at 05:45; Stop 03/25/19 at 06:44; Status DC Diltiazem HCl (Cardizem) 125 mg STK-MED ONCE IV ; Start 03/25/19 at 05:50; Stop 03/25/19 at 05:50; Status DC Norepinephrine Bitartrate 8 mg/ Dextrose 258 ml @ 11.059 mls/ hr CONT PRN IV SEE I/O RECORD Last administered on 03/25/19at 06:19; Start 03/25/19 at 06:00 Norepinephrine Bitartrate (Levophed) 4 mg STK-MED ONCE IV ; Start 03/25/19 at 06:09; Stop 03/25/19 at 06:09; Status DC Digoxin (Lanoxin) 250 mcg 1X STAT IV Last administered on 03/25/19at 07:26; Start 03/25/19 at 07:18; Stop 03/25/19 at 07:22; Status DC Digoxin (Lanoxin) 250 mcg 1X STAT IV Last administered on 03/25/19at 08:06; Start 03/25/19 at 07:51; Stop 03/25/19 at 07:58; Status DC Active Scripts Active Lomotil Tablet (Diphenoxylate Hcl/Atropine) 1 Each Tablet 1 Tab PO TID PRN Flagyl (Metronidazole) 500 Mg Tablet 1 Tab PO TID Reported Multi Vitamin Daily (Multivitamin) 1 Each Tablet 1 Tab PO DAILY 30 Days ALLERGIES Allergies: Coded Allergies: No Known Drug Allergies (Unverified , 02/15/19) ROS Review of Systems 14 point ROS conducted with pertinent positives noted above in HPI PHYSICAL EXAM General: Alert, Cooperative, Other (fatigued ) HEENT: Atraumatic, Mucous membr. moist/pink Lungs: Other (diminshed throughout ) Heart: Other (IRRR; tele AFIB with RVR- rate 125-130) Abdomen: Soft, No tenderness Extremities: Other (1+ bilateral LE edema ) Skin: No breakdown Neuro: Normal speech, Sensation intact Psych/Mental Status: Other (flat affect ) MUSCULOSKELETAL: Osteoarthritic changes both hands VITALS Vital Signs Vital Signs Date Time Temp Pulse Resp B/P (MAP) Pulse Ox O2 Delivery O2 Flow Rate FiO2 03/25/19 08:07 95 NonRebreather Mask 15.0 03/25/19 08:06 140 114/54 03/25/19 07:25 27 03/25/19 05:35 99.8 LABS LABS Laboratory Tests Test 03/24/19 11:20 03/24/19 12:10 03/24/19 12:45 03/24/19 19:58 White Blood Count 38.8 x10^3/uL (4.0-11.0) Red Blood Count 4.64 x10^6/uL (4.30-5.70) Hemoglobin 12.0 g/dL (13.0-17.5) Hematocrit 37.6 % (39.0-53.0) Mean Corpuscular Volume 81 fL (79-100) Mean Corpuscular Hemoglobin 26 pg (25-35) Mean Corpuscular Hemoglobin Concent 32 g/dL (31-37) Red Cell Distribution Width 20.6 % (11.5-14.5) Platelet Count 208 x10^3/uL (140-400) Neutrophils (%) (Auto) 96 % (31-73) Lymphocytes (%) (Auto) 1 % (24-48) Monocytes (%) (Auto) 2 % (0-9) Eosinophils (%) (Auto) 0 % (0-3) Basophils (%) (Auto) 0 % (0-3) Neutrophils # (Auto) 37.1 x10^3uL (1.8-7.7) Lymphocytes # (Auto) 0.6 x10^3/uL (1.0-4.8) Monocytes # (Auto) 0.9 x10^3/uL (0.0-1.1) Eosinophils # (Auto) 0.1 x10^3/uL (0.0-0.7) Basophils # (Auto) 0.1 x10^3/uL (0.0-0.2) Segmented Neutrophils % 79 % (35-66) Band Neutrophils % 12 % (0-9) Lymphocytes % 4 % (24-48) Monocytes % 4 % (0-10) Metamyelocytes % 1 % (0-0) Toxic Granulation Present Toxic Vacuolation Present Dohle Bodies Present Platelet Estimate Adequate (ADEQUATE) Large Platelets Occ Polychromasia Present Anisocytosis Slight Sodium Level 130 mmol/L (136-145) Potassium Level 4.8 mmol/L (3.5-5.1) Chloride Level 92 mmol/L (98-107) Carbon Dioxide Level 31 mmol/L (21-32) Anion Gap 7 (6-14) Blood Urea Nitrogen 30 mg/dL (8-26) Creatinine 0.8 mg/dL (0.7-1.3) Estimated GFR (Cockcroft-Gault) 95.0 BUN/Creatinine Ratio 38 (6-20) Glucose Level 68 mg/dL (70-99) Calcium Level 9.3 mg/dL (8.5-10.1) Magnesium Level 2.0 mg/dL (1.8-2.4) Total Bilirubin 1.5 mg/dL (0.2-1.0) Aspartate Amino Transf (AST/SGOT) 40 U/L (15-37) Alanine Aminotransferase (ALT/SGPT) 33 U/L (16-63) Alkaline Phosphatase 234 U/L (46-116) Creatine Kinase 165 U/L (39-308) Creatine Kinase MB (Mass) 1.2 ng/mL (0.0-3.6) Creatine Kinase MB Relative Index 0.7 % (0-4) Troponin I Quantitative < 0.017 ng/mL (0-0.055) LI-Sib-M-Type Natriuretic Peptide 1487 pg/mL (0-124) Total Protein 6.8 g/dL (6.4-8.2) Albumin 2.0 g/dL (3.4-5.0) Albumin/Globulin Ratio 0.4 (1.0-1.7) Prothrombin Time 14.1 SEC (9.4-11.4) Prothromb Time International Ratio 1.4 (0.9-1.1) Activated Partial Thromboplast Time 33 SEC (23-33) Lactic Acid Level 1.7 mmol/L (0.4-2.0) Glucose (Fingerstick) 156 mg/dL (70-99) Test 03/25/19 07:45 White Blood Count 34.7 x10^3/uL (4.0-11.0) Red Blood Count 3.53 x10^6/uL (4.30-5.70) Hemoglobin 9.0 g/dL (13.0-17.5) Hematocrit 29.2 % (39.0-53.0) Mean Corpuscular Volume 83 fL (79-100) Mean Corpuscular Hemoglobin 26 pg (25-35) Mean Corpuscular Hemoglobin Concent 31 g/dL (31-37) Red Cell Distribution Width 20.3 % (11.5-14.5) Platelet Count 191 x10^3/uL (140-400) Neutrophils (%) (Auto) 96 % (31-73) Lymphocytes (%) (Auto) 1 % (24-48) Monocytes (%) (Auto) 2 % (0-9) Eosinophils (%) (Auto) 0 % (0-3) Basophils (%) (Auto) 0 % (0-3) Neutrophils # (Auto) 33.2 x10^3uL (1.8-7.7) Lymphocytes # (Auto) 0.4 x10^3/uL (1.0-4.8) Monocytes # (Auto) 0.7 x10^3/uL (0.0-1.1) Eosinophils # (Auto) 0.1 x10^3/uL (0.0-0.7) Basophils # (Auto) 0.1 x10^3/uL (0.0-0.2) Sodium Level 135 mmol/L (136-145) Potassium Level 3.6 mmol/L (3.5-5.1) Chloride Level 103 mmol/L (98-107) Carbon Dioxide Level 25 mmol/L (21-32) Anion Gap 7 (6-14) Blood Urea Nitrogen 17 mg/dL (8-26) Creatinine 0.6 mg/dL (0.7-1.3) Estimated GFR (Cockcroft-Gault) 132.4 Glucose Level 127 mg/dL (70-99) Calcium Level 7.4 mg/dL (8.5-10.1) Magnesium Level 1.6 mg/dL (1.8-2.4) ASSESSMENT/PLAN Assessment/Plan 1. Weakness, fatigue 2. Metastatic lung CA with brain, liver, and renal involvement. Fairly new di agnosis. Follows with [facility]. Has had radiation to brain. Does not want chemo 3. AFIB with RVR, new onset. On Cardizem 15/hr and received IV Dig. Rate continues to be elevated 4. Hypothyroidism 5. Tobaccoism Recommendations Metoprolol IV x1 now Replace Mg. Patient wishes palliative care WOODROW KO MD 03/25/19 1637: CARDIAC CONSULT ASSESSMENT/PLAN Assessment/Plan Patient seen and examined Atrial fibrillation with rapid ventricular response rate. Now significantly improved. We'll continue on present treatments with close monitoring. Metastatic lung cancer with brain, liver and renal involvement as above. Status post radiation to the brain. Follows with oncology. As noted above patient wishes palliative care. Hypothyroidism. Continue present treatment. Hypomagnesemia. Replace and monitor. Thank you for allowing us to participate in the care of your patient. KATIA MURDOCK APRN Mar 25, 2019 08:48 WOODROW KO MD Mar 25, 2019 16:37
--- NOTE | 2019-03-25 11:54 | NUR ---
Verbal orders from Dr Davidson to hold off on IV metoprolol that was ordered by Susu MA from Cardio. Patients HR has decreased to a controlled rate of 90-100s. Patient taken off the non rebreather and placed on 4L NC and maintaining sats of 94%. Denies complaints at this time but is making statements that he is done. States "lets just get this over with, i am ready." Explained to patient and daughter that [facility] is on there way to discuss plan of care and options for the patient. Hospital heel compressor has been paged per family request. Daughter in room at bedside, states "this is all happening so fast. it is so hard on us!"
--- NOTE | 2019-03-25 13:40 | NUR ---
[facility] her at this time and meeting with jeffery to discuss plan of care. patient resting comfortably in bed at this time, denies need for pain medication. Refused to have lunch but did request a chocolate shake which nurse was able to make an ensure and ice cream shake.
[2019-03-25] MEDS: VANCOMYCIN PER PHARMACY MC PRN (14:31)
--- NOTE | 2019-03-25 14:36 | HP ---
ADMIT DATE: 03/24/2019 HISTORY OF PRESENT ILLNESS: The patient is a 73-year-old male patient who presented to the Emergency Room with a history of lung cancer with metastases to his liver and his brain. He was at [facility] Oncology Department and he was brought to this Emergency Department due to generalized weakness. The patient stated he tried to get out of bed this morning, became very really weak and fell on his buttock. He denied any headache, neck pain, chest pain or any trouble breathing. The patient had been feeling weak and dehydrated for the past week. He denied any cough or fever. He is very anorexic, has not been eating or drinking much lately. He is aching all over, wanted some pain medication. He was evaluated in the Emergency Room and was found to have marked leukocytosis, white cell count of 38,800. His coagulation tests were normal. His chemistry showed he has hyponatremia and his total bilirubin and alkaline phosphatase were markedly elevated and his chest x-ray showed that he has left mid to lower thoracic lung field mass-like consolidation present and ill-defined, this involves the hilum on the left as well as no pneumothorax or significant pleural effusion. He was basically admitted to the ICU with a diagnosis of hypoglycemia, healthcare-associated pneumonia, and metastatic lung cancer. PAST MEDICAL HISTORY: Significant for lung cancer with metastatic disease to the brain and liver. ALLERGIES: He has no known drug allergies. SOCIAL HISTORY: He lives at home and has had a [id number] history of smoking. PHYSICAL EXAMINATION: GENERAL: On examining him, he is apparently well-developed, well-nourished, appears pale and frail, nontoxic in appearance. VITAL SIGNS: His heart rate on admission was 118, blood pressure was 109/63, temperature 101.4, respiratory rate was 18 and oxygen saturation was 93% on 3.5 liters of oxygen. HEAD, EYES, EARS, NOSE AND THROAT: Showed normocephalic, atraumatic. NECK: Supple. HEART: Showed normal first and second heart sounds with no gallop or murmur. CHEST: Showed central trachea. No crepitation or rhonchi. ABDOMEN: Scaphoid, soft, nontender. NEUROLOGIC: He was alert, oriented x 3 with normal motor and sensory function, no focal deficit. EXTREMITIES: Showed no clubbing, cyanosis or edema. LABORATORY DATA: His lab work on admission showed that his serum sodium was 130, potassium 4.8, chloride 92, bicarbonate 31, ____ BUN of 30, creatinine 0.8, estimated GFR was 95 mL per minute. His glucose was 68, calcium was 9.3, magnesium 2. Total bilirubin and alkaline phosphatase were elevated. AST and ALT were normal. CK was 165. Beta natriuretic peptide was 1487. Total protein was 6.8, albumin was 2. Her white cell count was 38,800, hemoglobin 12, hematocrit 37.6, MCV 81 and platelet count of 208,000 with normal manual differential. His prothrombin time was 14.1, INR 1.4, aPTT was 33. Chest x-ray showed that he has no mid to lower thoracic mass-like consolidation, which involved the left hilum neoplastic process of concern. Further evaluation with CT scan of the chest and with contrast recommended for more definitive evaluation. His pelvic showed no displaced fracture seen. There is bone demineralization. There is minimal bilateral hip osteoarthritis. Given his fever and leukocytosis, he was started on IV antibiotic in the form of vancomycin and Zosyn. Apparently, he was hypotensive and he was started on Levophed. We will follow his labs closely and decide the further management accordingly. ADMISSION DIAGNOSES: Lung cancer with metastases, community-acquired pneumonia, dehydration, generalized weakness and hypoglycemia. EVITA BLANCO MD DR: ISABELLA/inocencia JOB#: [id number] / [id number]
--- NOTE | 2019-03-25 15:15 | NUR ---
Hospice christie and casey saw operator met with patient and family during this time. Plan is to discharge and readmit as inpatient hospice. Spoke with supervisor tumblers and plan is to transfer patient to room 119 for more privacy. Cardizem discontinued and will start all comfort measures per patients request.
[2019-03-25 19:06] LABS: THYROID STIM HORMONE (TSH) 1.558 uIU/mL (0.358-3.740)
[2019-03-25] MEDS ORDERED: VANCOMYCIN 750 MG in IV NORMAL SALINE 250ML 250 ML IV SCH (20:00)
--- NOTE | 2019-03-25 22:39 | PN ---
DATE: SUBJECTIVE: The patient was admitted last night with pneumonia and metastatic lung cancer to the brain and liver. While in the ICU, he went into atrial fibrillation with rapid ventricular response for which he was started on Cardizem drip. His heart rate was eventually well controlled. Apparently, he expressed his desire to go on hospice and would like to stop all the treatment. OBJECTIVE: GENERAL: When I saw him this afternoon, he was pale, extremely cachectic, but no jaundice, cyanosis or thyromegaly. No jugular venous distention. No limb edema. VITAL SIGNS: His heart rate was 97, blood pressure was 108/53, temperature was 97.9, respiratory rate 18 and oxygen saturation was 92% on 4 liters of oxygen. HEAD, EYES, EARS, NOSE AND THROAT: Showed normocephalic, atraumatic. NECK: Supple. HEART: Normal first and second heart sounds. No gallop or murmur. CHEST: Clear to auscultation. No crepitation or rhonchi. ABDOMEN: Scaphoid, soft, nontender. NEUROLOGIC: He is awake, alert, responding appropriately. All cranial nerves are intact. He moves extremities without difficulty. There is marked muscle weakness and wasting. His intake over the last 24 hours was 3200, output was 900. LABORATORY DATA: His lab work this morning showed his white cell count slightly down to 34,000, hemoglobin 9, hematocrit 29, MCV 83 and platelet count ____. His chemistry showed a serum sodium 135, potassium 3.6, chloride 103, bicarbonate 25, anion gap of 7, BUN 17, creatinine 0.6, estimated GFR was 132 mL per minute, his glucose 127, calcium was 7.4, magnesium was 1.6. ASSESSMENT AND PLAN: Lung cancer with metastasis to the brain and liver and pneumonia. The patient basically wanted to go on hospice and arrangements are made for him to be admitted to inpatient hospice. EVITA BLANCO MD DR: ISABELLA/inocencia JOB#: [id number] / [id number]
--- NOTE | 2019-03-26 09:57 | CARD ---
MR#: [id number] Date of Study: 03/25/2019 Ordering Physician: KATIA MURDOCK, Referring Physician: KATIA MURDOCK, Tech: Lucy Sevilla APPROVED REPORT EXAM: Two-dimensional and M-mode echocardiogram with Doppler and color Doppler. Other Information Quality : AverageHR: 96bpm INDICATION Atrial Fibrillation 2D DIMENSIONS RVDd2.2 (2.9-3.5cm)Left Atrium(2D)2.7 (1.6-4.0cm) IVSd0.9 (0.7-1.1cm)Aortic Root(2D)3.2 (2.0-3.7cm) LVDd4.0 (3.9-5.9cm)LVOT Diameter2.0 (1.8-2.4cm) PWd0.9 (0.7-1.1cm)LVDs2.4 (2.5-4.0cm) FS (%) 40.5 %SV48.8 ml LVEF(%)71.8 (>50%) Aortic Valve AoV Peak Harley.162.4cm/sAoV VTI26.5cm AO Peak GR.10.6mmHgLVOT Peak Harley.141.9cm/s LVOT VTI 23.93cmAO Mean GR.6mmHg YURI (VMAX)2.75if3GPU (VTI)2.73cm2 Mitral Valve MV E Nxbljrvr28.9cm/sMV DECEL EMUW423yj MV A Sviakblz02.9cm/sE/A Ratio2.6 Pulmonary Valve PV Peak Egvnjxhr76.1cm/sPV Peak Grad.3mmHg Tricuspid Valve TR P. Plyjulsx024ym/sRAP PMIRYDEO2owFt TR Peak Gr.15maMgFLKJ92rmUh LEFT VENTRICLE The left ventricle is normal size. There is normal left ventricular wall thickness. The left ventricu lar systolic function is normal. The Ejection Fraction is 60-65%. There is normal LV segmental wall m otion. Diastology indeterminate due to atrial fibrillation. RIGHT VENTRICLE The right ventricle is normal size. There is normal right ventricular wall thickness. The right ventr icular systolic function is normal. ATRIA The left atrium size is normal. The right atrium size is normal. The interatrial septum is intact wit h no evidence for an atrial septal defect or patent foramen ovale as noted on 2-D or Doppler imaging. AORTIC VALVE The aortic valve is normal in structure and function. Doppler and Color Flow revealed no significant aortic regurgitation. There is no significant aortic valvular stenosis. MITRAL VALVE The mitral valve is normal in structure and function. There is no evidence of mitral valve prolapse. There is no mitral valve stenosis. Doppler and Color-flow revealed trace mitral regurgitation. TRICUSPID VALVE The tricuspid valve is not well visualized. Doppler and Color Flow revealed trace tricuspid regurgita tion with an estimated PAP of 32 mmHg. There is no tricuspid valve stenosis. PULMONIC VALVE The pulmonary valve is normal in structure and function. Doppler and Color Flow revealed trace pulmon ic valvular regurgitation. GREAT VESSELS The aortic root is normal in size. The IVC was not well visualized. PERICARDIAL EFFUSION There is no evidence of significant pericardial effusion. Critical Notification Critical Value: No <Conclusion> The left ventricular systolic function is normal. The Ejection Fraction is 60-65%. There is normal LV segmental wall motion. Trace mitral regurgitation. Trace tricuspid regurgitation with an estimated PAP of 32 mmHg. There is no evidence of significant pericardial effusion. Signed by : Ronny Ramirez, Electronically Approved : 03/26/2019 09:56:41
== END 2019-03-25 16:54 | disposition hospice, inpatient (51) | DRG 871 ==
LOC: ER 11:05 → 1 SOUTH 16:50 → ICU 03-25 05:30 → UNDODISIN 03-25 16:54
PROVIDERS: ADMIT Internal Medicine; ATTEND Internal Medicine
DX: A41.9 Sepsis, unspecified organism (principal); J18.9 Pneumonia, unspecified organism; E43 Unspecified severe protein-calorie malnutrition; C34.90 Malignant neoplasm of unspecified part of unspecified bronchus or lung; C78.7 Secondary malignant neoplasm of liver and intrahepatic bile duct; C79.31 Secondary malignant neoplasm of brain; E87.1 Hypo-osmolality and hyponatremia; Z68.1 Body mass index [BMI] 19.9 or less, adult; E03.9 Hypothyroidism, unspecified; E16.2 Hypoglycemia, unspecified; E83.42 Hypomagnesemia; E86.0 Dehydration; F17.210 Nicotine dependence, cigarettes, uncomplicated; I48.91 Unspecified atrial fibrillation; Y95 Nosocomial condition; Z51.5 Encounter for palliative care; Z66 Do not resuscitate; Z82.49 Family history of ischemic heart disease and other diseases of the circulatory system; Z85.118 Personal history of other malignant neoplasm of bronchus and lung; Z92.3 Personal history of irradiation
CPT/HCPCS: 36415; 71045; 72170; 80048; 80053; 80061; 80177; 82553; 82947; 83605; 83735; 83880; 84443; 84484; 85007; 85025; 85610; 85730; 87040; 87205; 93005; 93306; 96361; 96374; 96375; J1160; J2270; J2543; J3010; J3370; J3475; J3490; J7050; J8540; 99285-25; J7030

== ENCOUNTER 2019-03-25 16:54 | Inpatient (IN) | payer OTHER ==
[~2019-03-25] VITALS: Ht 175.3 cm; Wt 57.2 kg
[2019-03-25] MEDS ORDERED: BISACODYL 10 MG SUPP.RECT PR PRN (17:45)
[2019-03-25] MEDS ORDERED: ATROPINE 1% OPHTH SOLUTION 5ML BOTTLE. SL PRN (17:45)
[2019-03-25] MEDS ORDERED: ONDANSETRON PF 4 MG/2 ML VIAL. IVP PRN (17:45)
[2019-03-25] MEDS ORDERED: ACETAMINOPHEN 650 MG SUPP.RECT. RC PRN (17:45)
[2019-03-26 05:40] VITALS: BP 123/67
[2019-03-26] MEDS: MORPHINE SULFATE 2 MG/ML DISP.SYRIN. IV PRN ×3 (15:25→22:39)
[2019-03-26 15:31] VITALS: BP 114/81
[2019-03-27] MEDS: MORPHINE SULFATE 2 MG/ML DISP.SYRIN. IV PRN ×7 (00:59→15:15)
--- NOTE | 2019-03-27 02:59 | HP ---
ADMIT DATE: 03/26/2019 The patient was admitted to inpatient hospice at his own request. He has metastatic lung cancer with metastases to the brain as well as liver. He was seen in the Emergency Room and was found to be hyponatremic, has had pneumonia and basically, we started him on IV antibiotic, but the patient opted to discontinue all the active measures and would like to be comfortable. PHYSICAL EXAMINATION: GENERAL: When I saw him today, he looked well, pale, cachectic, but not jaundiced, cyanosed or thyromegaly. NECK: No jugular venous distention. EXTREMITIES: No lower limb edema. VITAL SIGNS: Stable. PLAN: To continue again with morphine, Ativan as well as atropine sulfate as well as oxygen for comfort care. EVITA BLANCO MD DR: ISABELLA/inocencia JOB#: [id number] / [id number]
[2019-03-27 05:51] VITALS: BP 93/63
[2019-03-27] MEDS ORDERED: SCOPOLAMINE 1.5MG PATCH. TD SCH (15:00)
[2019-03-27 15:21] VITALS: BP 70/51
[2019-03-27] MEDS ORDERED: DIGOXIN IV 500 MCG/2 ML AMPUL. IV ONE (15:30)
[2019-03-27 15:39] VITALS: BP 70/51
--- NOTE | 2019-03-27 17:10 | PN ---
DATE: 03/27/2019 SUBJECTIVE: The patient has been unresponsive since early this morning, he is comfortable, although his oxygen saturation is very low. PLAN: To continue with his comfort care. Continue with Ativan and morphine. The patient has lung cancer metastasis to the brain and liver and he decided against any aggressive treatment. EVITA BLANCO MD DR: ISABELLA/inocencia JOB#: [id number] / [id number]
--- NOTE | 2019-04-01 12:11 | DS ---
DATE OF DISCHARGE: 03/28/2019 SUMMARY HOSPITAL COURSE: The patient is a 73-year-old male patient who presented to the Emergency Room of [facility] with generalized weakness. He apparently was diagnosed with lung cancer with metastasis to his liver and his spleen. He was at [facility] and the patient stated that when he tried to get out of bed, he became very really weak and fell on his buttocks. He denied any headache, neck pain, chest pain or trouble breathing. He was aching all over. His white cell count was extremely high at 38,000, marked hyponatremia and his total bilirubin and alkaline phosphatase were markedly elevated. His chest x-ray showed he has left lower thoracic lung field masses, like consolidation present an ill-defined and this involves the hilum of the left, but no pneumothorax or significant pleural effusion. He was admitted to ICU with diagnosis of healthcare-associated pneumonia and metastatic lung cancer. He was started on IV antibiotic as per protocol; however, the patient opted to go on hospice and was admitted to inpatient hospice services. He was started on morphine, Ativan, and scopolamine. He continued to be extremely hypoxic and his condition has dramatically deteriorated. At around 1720 hours, the patient became completely unresponsive. He has no audible heart sounds, no pulsation, no spontaneous breathing and the patient was pronounced . The cause of is cardiopulmonary arrest, acute on chronic hypoxic respiratory failure, metastatic lung cancer and healthcare-associated pneumonia. EVITA BLANCO MD DR: ISABELLA/inocencia JOB#: [id number] / [id number]
== END 2019-03-28 01:10 | disposition expired | DRG 180 ==
LOC: ICU 16:54 → 1 SOUTH 17:59 → UNDODISIN 03-27 17:46
PROVIDERS: ADMIT Internal Medicine; ATTEND Internal Medicine
DX: C34.90 Malignant neoplasm of unspecified part of unspecified bronchus or lung (principal); J18.9 Pneumonia, unspecified organism; J96.21 Acute and chronic respiratory failure with hypoxia; C78.7 Secondary malignant neoplasm of liver and intrahepatic bile duct; C79.31 Secondary malignant neoplasm of brain; Z51.5 Encounter for palliative care; Z66 Do not resuscitate; I46.9 Cardiac arrest, cause unspecified
CPT/HCPCS: J1160; J2060; J2270; J2405; Q5005